=== PATIENT | female | born 1985 | race African-American/Black ===

== ENCOUNTER 2016-09-01 15:14 | Emergency (ER) | payer SELFPAY | END 2016-09-01 16:06 | disposition left against medical advice (07) | LOC: UCEAST 15:14 | DX: R05 Cough (principal); Z53.21 Procedure and treatment not carried out due to patient leaving prior to being seen by health care provider ==

== ENCOUNTER 2017-08-29 10:57 | Emergency (ER) | payer MEDICAID ==
[2017-08-29] MEDS ORDERED: Mouth Piece, Nicotine* 1 EACH CARTRIDGE INH PRN (12:50)
[2017-08-29] MEDS ORDERED: Nicotine Inhaler* 10 MG AMP INH ONE (12:50)
[2017-08-29] MEDS ORDERED: Nicotine Inhaler* 10 MG AMP ONE ×2 (12:52)
[2017-08-29] MEDS ORDERED: Mouth Piece, Nicotine* 1 EACH CARTRIDGE ONE (12:52)
--- NOTE | 2017-08-29 14:17 | RAD ---
Indication: Left hand injury. 4 views of left hand demonstrates no fracture. No other bone or joint abnormality is noted. IMPRESSION: No fracture of the left hand is noted.
[2017-08-29 14:50] VITALS: BP 125/71
--- NOTE | 2017-08-30 07:10 | ED ---
Upper Extremity Pain - HPI Summary HPI Summary: Patient is a 31-year-old IV drug user presenting to the ED with a chief complaint of left hand swelling after she punched a "wall" last night. She endorses swelling and exquisite tenderness to the area. She endorses pain over the dorsum of the hand. She's been using IV drugs, but states she is not injected into the hand. Denies any other pain or concerns. She has been denying fever, sweats, chills. Denies any other illness. She is able to extend at the fingertips, but with pain. She is able to flex and extend at the wrist. Denies any numbness or tingling to the area. - History of Current Complaint Chief Complaint: EDExtremityUpper Stated Complaint: LT HAND INJURY Time Seen by Provider: 08/29/17 11:07 Hx Obtained From: Patient Hx Last Menstrual Period: 12/02/15 Mechanism Of Injury: Blunt Trauma Onset/Duration: Started Hours Ago Timing: Constant Severity Initially: Moderate Severity Currently: Moderate Pain Location: Hand Character: Aching Aggravating Factor(s): Lifting, Flexion, Extension, Internal/External Rotation, Abduction Alleviating Factor(s): Rest, Ice Associated Signs & Symptoms: Positive: Swelling, Redness Related History: Dominant Hand Right - Risk Factors Non-Orthopedic Risk Factor: Negative DVT Risk Factors: Negative Septic Arthritis Risk Factor: Negative Compartment Syndrome Risk Factors: Pain - Allergies/Home Medications Allergies/Adverse Reactions: Allergies Allergy/AdvReac Type Severity Reaction Status Date / Time Iodinated Contrast- Oral and Allergy Rash Verified 08/29/17 11:03 IV Dye iodine Allergy Rash Verified 08/29/17 11:03 mushroom Allergy Anaphylatic Verified 08/29/17 11:03 Shock shellfish derived Allergy Difficulty Verified 08/29/17 11:03 Breathing PMH/Surg Hx/FS Hx/Imm Hx Previously Healthy: Yes - Lungs Respiratory History: Reports: Hx Asthma - exercise induced History: Reports: Hx Kidney Infection - Surgical History Surgery Procedure, Year, and Place: c-sectionx1 - Immunization History Hx Pertussis Vaccination: No Immunizations Up to Date: Unable to Obtain/Confirm Infectious Disease History: No Infectious Disease History: Denies: Traveled Outside the [place] in Last 30 Days - Family History Known Family History: Positive: Unknown, Other - pt denies family hx of cardiopulmonary disease or cancer - Social History Occupation: Unemployed Lives: Alone Alcohol Use: Rare Hx Substance Use: Yes - heroin Substance Use Type: Reports: None Smoking Status (MU): Current Every Day Smoker Type: Cigarettes Amount Used/How Often: 1 PPD Review of Systems Negative: Fever, Chills, Fatigue Negative: Photophobia, Blurred Vision Negative: Dental Pain Negative: Palpitations, Chest Pain Negative: Shortness Of Breath Positive: Arthralgia Positive: Other - swelling, erythema and warmth to the dorsum of the L hand Negative: Headache, Weakness, Paresthesia Psychological: Normal All Other Systems Reviewed And Are Negative: Yes Physical Exam Triage Information Reviewed: Yes Vital Signs On Initial Exam: Initial Vitals Temp Pulse Resp BP Pulse Ox 97.3 F 67 14 112/75 100 08/29/17 11:03 08/29/17 11:03 08/29/17 11:03 08/29/17 11:03 08/29/17 11:03 Vital Signs Reviewed: Yes Appearance: Positive: Well-Appearing, Well-Nourished Skin: Positive: Other - erythma and warmth to the dorsum of the hand Head/Face: Positive: Normal Head/Face Inspection Eyes: Positive: EOMI, LUANNE, Conjunctiva Clear Neck: Positive: Supple, No Lymphadenopathy Respiratory/Lung Sounds: Positive: Clear to Auscultation, Breath Sounds Present Cardiovascular: Positive: RRR, Pulses are Symmetrical in both Upper and Lower Extremities Musculoskeletal: Positive: Normal, Strength/ROM Intact Neurological: Positive: Alert, Oriented to Person Place, Time, Speech Normal Psychiatric: Positive: Affect/Mood Appropriate AVPU Assessment: Alert Diagnostics - Vital Signs Vital Signs Temp Pulse Resp BP Pulse Ox 08/29/17 14:49 98.5 F 91 16 125/71 99 08/29/17 11:03 97.3 F 67 14 112/75 100 - Laboratory Lab Statement: Any lab studies that have been ordered have been reviewed, and results considered in the medical decision making process. Course/Dx - Course Course Of Treatment: During the course of treatment, the patient's evaluated for left hand swelling. On evaluation the hand appears to be red, swollen, warm with slight amount of streaking up the forearm. She denies fevers and her vital signs are otherwise stable. Patient states she hit a wall last night and must have fractured her hand, however x-ray is negative. She then states she did not hit a wall but she had a person. Denies hitting them in the mouth. I discussed that this appears to be an infection of the hand, most likely due to IV drug use. I've considered Eikenella corrodens as an infection from oropharyngeal aidan, however she denies this. For that, I have placed her on Bactrim at this time. She attends drug treatment tomorrow. I have asked her to return for any worsening streaking up the hand, warmth, tenderness, swelling or she develops any fevers. She understands she will take Bactrim twice daily 5 days without missing a dose. - Diagnoses Differential Diagnosis/HQI/PQRI: Positive: Other - hand infection Provider Diagnoses: IV site infection, Hand trauma Discharge - Sign-Out/Discharge Documenting (check all that apply): Discharge - Discharge Plan Condition: Stable Disposition: HOME Prescriptions: Sulfamethox/Trimethoprim DS* [Bactrim DS 800/160 TAB*] 1 tab PO BID #10 tab Sulfamethox/Trimethoprim DS* [Bactrim DS 800/160 TAB*] 1 tab PO BID #14 tab MDD 2 Patient Education Materials: Cellulitis (ED), Crush Injury (ED) Referrals: Dawson Damon MD [Medical Doctor] - No Primary Care Phys,NOPCP [Primary Care Provider] - Additional Instructions: Please follow-up with Dr. Cannon for any worsening pain If you develop worsening redness, warmth, red streaking up the arm or develop a fever, E need to return to the ED immediately Bactrim twice daily 5 days Keep the Preston bandage on 2 days - Billing Disposition and Condition Condition: STABLE Disposition: HOME
== END 2017-08-29 14:50 | disposition home or self-care (01) ==
LOC: ED 10:57
DX: S69.91XA Unspecified injury of right wrist, hand and finger(s), initial encounter (principal); Y92.9 Unspecified place or not applicable; T80.29XA Infection following other infusion, transfusion and therapeutic injection, initial encounter; J45.990 Exercise induced bronchospasm; F17.210 Nicotine dependence, cigarettes, uncomplicated; Y04.2XXA Assault by strike against or bumped into by another person, initial encounter
CPT/HCPCS: 99282; A9270-GY

== ENCOUNTER 2018-04-13 18:06 | Emergency (ER) | payer SELFPAY ==
[2018-04-13 18:36] VITALS: BP 121/75
--- NOTE | 2018-04-14 08:36 | UC ---
- Progress Note Progress Note: There were no x-rays ordered on April 13, 2018 therefore there is no discrepancy. Course/Dx - Diagnoses Provider Diagnoses: Patient left without being seen Discharge - Sign-Out/Discharge Documenting (check all that apply): Patient Departure All imaging exams completed and their final reports reviewed: No Studies - Discharge Plan Condition: Stable Disposition: LEFT WITHOUT BEING SEEN Referrals: No Primary Care Phys,NOPCP [Primary Care Provider] - - Billing Disposition and Condition Condition: STABLE Disposition: Left Without Being Seen
== END 2018-04-13 19:05 | disposition left against medical advice (07) ==
LOC: UCEAST 18:06
DX: S49.90XA Unspecified injury of shoulder and upper arm, unspecified arm, initial encounter (principal); X58.XXXA Exposure to other specified factors, initial encounter; Y92.9 Unspecified place or not applicable; Z53.21 Procedure and treatment not carried out due to patient leaving prior to being seen by health care provider

== ENCOUNTER 2018-10-09 22:20 | Emergency (ER) | payer OTHER ==
[2018-10-09] MEDS ORDERED: Lidocaine 2% EPI 1:200000 MPF* 10 ML VIAL INJ ONE (22:38)
[2018-10-09] MEDS ORDERED: Cephalexin CAP* 500 MG PO ONE ×2 (22:39→22:55)
--- NOTE | 2018-10-09 22:41 | ED ---
Skin Complaint - HPI Summary HPI Summary: This patient is a 32 year old F presenting to ED with a chief complaint of skin abscesses since a week ago. The patient has an abscess on the right arm since a week ago, on the left arm since two days ago, and on the right foot since today. The patient reports popping the abscesses on her right arm today. Patient states she is having an opiate withdrawal and is seven months . The patient rates the pain 10/10 in severity. Symptoms aggravated by nothing. Symptoms alleviated by nothing. Patient denies fever. PMHx of ulcer, kidney infection. PSHx of . No FHx of cardiopulmonary disease or cancer. Patient drinks alcohol, heroin, and tobacco. - History of Current Complaint Chief Complaint: EDRashSkinAbscess Time Seen by Provider: 10/09/18 22:31 Stated Complaint: OPEN SORES, STAPH INFECTION, WITHDRAWAL PER PT Hx Obtained From: Patient Hx Last Menstrual Period: [id number] Onset/Duration: Started Weeks Ago - 1 week, Still Present, Worse Since - Now left forearm and right foot Timing: Constant Current Severity: Severe Pain Intensity: 10 Pain Scale Used: 0-10 Numeric Skin Location: Foot - Right, Other: - Bilateral forearms Aggravating Symptom(s): Nothing Alleviating Symptom(s): Nothing Associated Signs & Symptoms: Negative - Fever, Drainage - Allergy/Home Medications Allergies/Adverse Reactions: Allergies Allergy/AdvReac Type Severity Reaction Status Date / Time Iodinated Contrast- Oral and Allergy Rash Verified 10/09/18 22:24 IV Dye iodine Allergy Rash Verified 10/09/18 22:24 mushroom Allergy Anaphylatic Verified 10/09/18 22:24 Shock shellfish derived Allergy Difficulty Verified 10/09/18 22:24 Breathing PMH/Surg Hx/FS Hx/Imm Hx Respiratory History: Reports: Hx Asthma - exercise induced GI History: Reports: Hx Ulcer History: Reports: Hx Kidney Infection - Surgical History Surgery Procedure, Year, and Place: c-sectionx1 Infectious Disease History: Yes Infectious Disease History: Denies: Traveled Outside the [place] in Last 30 Days - Family History Known Family History: Positive: Other - pt denies family hx of cardiopulmonary disease or cancer - Social History Alcohol Use: Weekly Hx Substance Use: Yes - heroin Substance Use Type: Reports: Heroin Hx Tobacco Use: Yes Smoking Status (MU): Current Some Day Smoker Type: Cigarettes Amount Used/How Often: 1 PPD Review of Systems Negative: Fever Skin: Other - Abscesses on bilateral arms and right foot All Other Systems Reviewed And Are Negative: Yes Physical Exam - Summary Physical Exam Summary: Appearance: Well-appearing, Well-nourished, lying in bed comfortable Skin: Multiple areas of localized infection of right forearm, none of which seem to be abscessed. There is a small area of drainage on left forearm with drainage and raised fluctuant area that appears abscessed (also visualized on US ). Right foot erythematous and tender, consistent cellulitis. Eyes: sclera anicteric, no conjunctival pallor ENT: mucous membranes moist Neck: deferred Respiratory: No signs of respiratory distress Cardiovascular: Appears well perfused, pulses are nml Abdomen: deferred Musculoskeletal: Moving all 4 extremities without obvious discomfort Neurological: Awake and alert, mentation is normal, speech is fluent and appropriate Psychiatric: affect is normal, does not appear anxious or depressed Triage Information Reviewed: Yes Vital Signs On Initial Exam: Initial Vitals Temp Pulse Resp BP Pulse Ox 98.8 F 89 18 86/70 97 10/09/18 22:22 10/09/18 22:22 10/09/18 22:22 10/09/18 22:22 10/09/18 22:22 Vital Signs Reviewed: Yes Procedures - Incision and Drainage Left Arm Site: Left forearm Anesthesia: Lidocaine Instrument(s): Scalpel - Small amount of pus was drained and flocculations were broken up. - Ultrasound No standard instances Ultrasound: normal - Bedside US revealed fluctuant area on left forearm Diagnostics - Vital Signs Vital Signs Temp Pulse Resp BP Pulse Ox 10/09/18 22:22 98.8 F 89 18 86/70 97 - Laboratory Lab Statement: Any lab studies that have been ordered have been reviewed, and results considered in the medical decision making process. Course/Dx - Course Course Of Treatment: This patient is a 32 year old F presenting to ED with a chief complaint of skin abscesses since a week ago. In the ED course, patient received Keflex. I&D was performed on the abscess of the left forearm. Small amount of pus was drained and flocculations were broken up. Patient will be discharged with dx of cellulitis of right foot, right and left forearm, and abscess of left forearm. Patient understands and agrees with this plan. - Diagnoses Provider Diagnoses: Cellulitis of right foot, Cellulitis of left forearm, Cellulitis of right forearm, Abscess of left forearm Discharge - Sign-Out/Discharge Documenting (check all that apply): Patient Departure - Discharge Patient Received Moderate/Deep Sedation with Procedure: No - Discharge Plan Condition: Good Disposition: HOME Prescriptions: Cephalexin CAP* [Keflex CAP*] 500 mg PO QID #40 cap Patient Education Materials: Cellulitis (ED), Abscess Follow-up (ED), Abscess Incision and Drainage (DC) Referrals: No Primary Care Phys,NOPCP [Primary Care Provider] - Additional Instructions: Check in with nurse at the care home first thing in the morning. Change dressings as needed. If you start to withdraw and they are unable to treat you at the care home you can return here for treatment. - Billing Disposition and Condition Condition: GOOD Disposition: Home - Attestation Statements Document Initiated by Nguyen: Yes Documenting Scribe: Edison Morales Provider For Whom Nguyen is Documenting (Include Credential): Alexander Beltran MD Scribe Attestation: IEdison, scribed for Alexander Beltran MD on 10/10/18 at 0315. Scribe Documentation Reviewed: Yes Provider Attestation: The documentation as recorded by the Edison roblero accurately reflects the service I personally performed and the decisions made by me, Alexander Beltran MD Status of Scribjose Document: Viewed
[2018-10-09] MEDS ORDERED: Lidocaine 2% W/EPI 1:100,000* 20 ML MDV INJ ONE (23:00)
[2018-10-10 00:59] VITALS: BP 99/55
== END 2018-10-10 00:56 | disposition home or self-care (01) ==
LOC: ED 22:20
DX: L02.414 Cutaneous abscess of left upper limb (principal); L02.413 Cutaneous abscess of right upper limb; L03.115 Cellulitis of right lower limb; L03.114 Cellulitis of left upper limb; Z72.0 Tobacco use
CPT/HCPCS: 10060; 96374; 99283; A9270-GY

== ENCOUNTER 2018-11-22 11:00 | Inpatient (IN) | payer OTHER ==
[~2018-11-22 11:00] MED LIST: Buffered Lidocaine 1% SYRIN* 1 ML/SYRINGE INTRADERM ONE; Lactated Ringers 1000 ML Bag* 1,000 ML IV SCH
--- OUTSIDE RECORDS SUMMARY | 2018-11-23 13:21 | XMS REPORT | Continuity of Care Document ---
:1985 External Reference #:[id number] Author Name Jacquelyn Lyles PA-C Address [address] [place] [address] [place] [address] Care Team Providers Name Role Phone Amelia Borden LM Care Team Information Inorganic Chemist Unavailable Payers Date Identification Numbers Payment Provider Subscriber PayID: [id number] [facility] Margarita Obregon [address] [place] [address] Attn: [place] [address] Problems Active Problems Provider Date High enzyme level in serum Jacquelyn Lyles PA-C Onset: 11/03/2018 Elevated levels of transaminase & lactic Jacquelyn Lyles PA-C Onset: acid dehydrogenase Social History Type Date Description Comments Sex Unknown ETOH Use Denies alcohol use 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 Recreational Drug Use history of Ivda (heroin) Tobacco Use Start: Unknown End: Patient is a former Unknown smoker Smoking Status Reviewed: 11/03/18 Patient is a former smoker Allergies, Adverse Reactions, Alerts Active Allergies Reaction Severity Comments Date Iodine 11/03/2018 Fish 11/03/2018 Medications Active Medications SIG Qnty Indications Ordering Provider Date Unknown Sublocade Unknown 300mg/1.5ML Soln Prefill Syringe Vital Signs Date Vital Result Comment 11/03/2018 1:56pm Height 61 inches 5'1" Weight 126.00 lb BP Systolic 112 mmHg BP Diastolic 67 mmHg Heart Rate 73 /min BMI (Body Mass Index) 23.8 kg/m2 Results Test Date Facility Test Result H/L Range Note Laboratory test 11/04/2018 [facility] Bile 26 mcmol/L Abnormal <=10 1, 2 finding Acids,Total CBC W/Auto 10/26/2018 [facility] White Blood <pending> Differential(!) Count Ser Auto CNT RBC Red Blood Count <pending> Hemoglobin Blood <pending> Hematocrit <pending> MCV (Corpuscular Volume) <pending> MCH (Corpuscular Hemoglobin) <pending> MCHC (Corpuscular Hemog Conc) <pending> RDW <pending> Platelet Count Blood Auto CNT <pending> MPV <pending> Lymph% <pending> [place]% <pending> Neutrophil % <pending> Absolute Lymphocytes <pending> Absolute Monocytes <pending> Absolute Neutrophils <pending> 1 [id number] 2 Test Performed by: [address] [id number]
--- OUTSIDE RECORDS SUMMARY | 2018-11-23 13:21 | XMS REPORT | Continuity of Care Document ---
:1985 External Reference #:[id number] Author Name Jacquelyn Lyles PA-C Address [address] [place] [address] [place] [address] Care Team Providers Name Role Phone Amelia Borden LM Care Team Information Pinion And Wheel Truer Unavailable Payers Date Identification Numbers Payment Provider Subscriber PayID: [id number] [facility] Margarita Obregon [address] [place] [address] Attn: [place] [address] Problems Active Problems Provider Date High enzyme [...] Auto CNT <pending> MPV <pending> Lymph% <pending> [place]% <pending> Neutrophil % <pending> Absolute Lymphocytes <pending> Absolute Monocytes <pending> Absolute Neutrophils <pending> 1 [id number] 2 Test Performed by: [address] [address]
--- OUTSIDE RECORDS SUMMARY | 2018-11-23 13:21 | XMS REPORT | Continuity of Care Document ---
:1985 External Reference #:[id number] Author Name Jacquelyn Lyles PA-C Address [address] [place] [address] [place] [address] Care Team Providers Name Role Phone Amelia Borden LM Care Team Information District Manager In Training Unavailable Payers Date Identification Numbers Payment Provider Subscriber PayID: [id number] [facility] Margarita Obregon [address] [place] [address] Attn: [place] [address] Problems Active Problems Provider Date High enzyme [...] Auto CNT <pending> MPV <pending> Lymph% <pending> [place]% <pending> Neutrophil % <pending> Absolute Lymphocytes <pending> Absolute Monocytes <pending> Absolute Neutrophils <pending> 1 [id number] 2 Test Performed by: [address] [address]
--- NOTE | 2018-11-23 13:28 | HP ---
General Information - Reason for Visit NEEDS REPEAT C/S. - General Information Maternal Age: 32 Grav: 5 Para: 1 SAB: 0 IEA: 3 Estimated Due Date: 12/13/18 Determined By: Early Ultrasound Maternal Blood Type and Rh: O Negative - Results this Serology/RPR Result: Non-Reactive Rubella Result: Immune HBsAg Result: Negative HIV Result: Negative Review of Systems CV Complaint: No Respiratory: Shortness of Breath: No Gastrointestinal: No Nausea/Vomiting Genitourinary: No Dysuria Musculoskeletal: No Complaint Neurological: No Headache, No Visual Changes Movement: Normal Exam Allergies/Adverse Reactions: Allergies Iodinated Contrast- Oral and IV Dye Allergy (Verified 10/09/18 22:24) Rash iodine Allergy (Verified 10/09/18 22:24) Rash mushroom Allergy (Verified 10/09/18 22:24) Anaphylatic Shock shellfish derived Allergy (Verified 10/09/18 22:24) Difficulty Breathing - Measurements Pre- Weight: 110 lb - Exam Breast: - - NL BREAST EXAM CVA: No CVA Tenderness Extremities: No Edema Heart: Normal Rhythm/Heart Sounds HEENT: No Significant Findings Lungs: Clear Bilaterally Rectal: Rectal Exam Deferred Reflexes: DTR 2+ Thyroid: No Thyromegaly - Abdominal Exam Abdomen Exam: Non-Tender - Ultrasound/Biophysical Profile Ultrasound Status: Not Done Targeted Exam Findings Cervical Exam: Closed Effacement: <50% Station: Ballotable, -3 Presenting Part: Vertex Membrane Status: Intact Bleeding/Discharge: None EFM Findings - External Monitor Findings External Monitor Findings: Accelerations Present, Baseline Stable, Variability Minimal Contractions: None Assessment/Plan - Assessment HX OF DRUG USE ON MEDS. ON MEDS FOR CHOLESTASIS. - Obstetrical Risk Factors Obstetrical Risk Factors: GBS Unknown, Substance Abuse Risk Factors Comment: DRUG USE CHOLESTASIS PREVIOUS C/S. - Plan Plan: C/S Delivery - Date/Time of Admission Date of Admission: 11/23/18 Time of Admission: 02:00 - C/S IN AM BECAUSE PT ATE TODAY PRIOR TO ARRIVAL TO HOSPITAL.
[2018-11-23] MEDS ORDERED: Lactated Ringers 1000 ML Bag* 1,000 ML IV ONE (13:59)
[2018-11-23] MEDS ORDERED: ceFOXitin 2 GM IVPREMIX* 2 GM/50 ML BAG IVPB ONE (13:59)
[2018-11-23] MEDS ORDERED: Buffered Lidocaine 1% SYRIN* 1 ML/SYRINGE INTRADERM ONE (13:59)
[2018-11-23] MEDS ORDERED: Sodium Citrate/Citric Acid* 15 ML UDC PO ONE (13:59)
[2018-11-23] MEDS ORDERED: Lactated Ringers 1000 ML Bag* 1,000 ML IV SCH (14:00)
[2018-11-23 15:01] LABS: Urine Appearance Cloudy; Urine Bacteria 1+ (Absent); Urine Bilirubin Negative (Negative); Urine Blood Negative (Negative); Urine Color Amber; Urine Glucose Negative (Negative); Urine Ketones Negative (Negative); Urine Nitrite Positive (Negative); Urine Protein Negative (Negative); Urine Red Blood Cell Absent (Absent); Urine Specific Gravity 1.023 (1.010-1.030); Urine Squamous Epithelial Cell Present (Absent); Urine Urobilinogen Positive (Negative); Urine White Blood Cell 1+(6-10/hpf) (Absent)
[2018-11-23 15:23] LABS: Urine Benzodiazepine Screen None Detected (None Detect); Urine Opiates Screen Presumptive Positive (None Detect)
[2018-11-23] MEDS: Nicotine PATCH 7 MG/24 HR* PATCH TRANSDERM SCH (15:47)
[2018-11-23 15:53] LABS: ABS Lymphocytes 1.8 10^3/ul (1.0-4.8); ABS Neutrophils 7.8 10^3/ul (1.5-7.7); Eosinophil % 0.1 %; Hematocrit 36 % (35-47); Hemoglobin 12.2 g/dL (12.0-16.0); Lymphocyte % 16.8 %; Mean Corpuscular HGB Conc 34 g/dL (31-36); Mean Corpuscular Hemoglobin 32 pg (27-31); Mean Corpuscular Volume 94 fL (80-97); Mean Platelet Volume 8.3 fL (7.4-10.4); Platelet Count 290 10^3/uL (150-450); Red Blood Count 3.86 10^6 /uL (3.70-4.87); Red Cell Distribution Width 15 % (10-15); White Blood Count 10.7 10^3/uL (3.5-10.8)
[2018-11-23 16:09] LABS: Calcium 9.2 mg/dL (8.6-10.3); Potassium 3.9 mmol/L (3.5-5.0)
[2018-11-23 16:15] LABS: BUN/Creatinine Ratio 17.1 (8-20); EGFR African American 118.1 (>60); EGFR Non-African American 97.6 (>60)
[2018-11-24] MEDS ORDERED: Nicotine Patch Removal NOTE FOLLOW UP SCH (06:00)
[2018-11-24] MEDS ORDERED: ceFOXitin 2 GM IVPREMIX* 2 GM/50 ML BAG IVPB ONE (07:00)
[2018-11-24] MEDS ORDERED: Sodium Citrate/Citric Acid* 15 ML UDC PO ONE (07:00)
[2018-11-24] MEDS ORDERED: Morphine PF AMP (0.5MG/ML)* 5 MG/10 ML AMP ONE (08:02)
[2018-11-24] MEDS ORDERED: Ondansetron INJ* 2 MG/ML VIAL ONE (08:04)
[2018-11-24] MEDS ORDERED: Ketorolac INJ* 30 MG/ML 1 ML VIAL ONE (08:04)
[2018-11-24] MEDS ORDERED: OXYTOCIN* 10 UNITS/ML 1 ML VIAL ONE (08:04)
[2018-11-24 08:44] LABS: Urine Benzodiazepine Screen None Detected (None Detect); Urine Opiates Screen Presumptive Positive (None Detect)
[2018-11-24] MEDS ORDERED: diPHENhydraMINE IV* 50 MG/ML 1 ml VIAL (BENADRYL) IV PRN (08:52)
[2018-11-24] MEDS ORDERED: Naloxone* 0.4 MG/ML 1 ML VIAL IV PRN (08:52)
[2018-11-24] MEDS ORDERED: Ondansetron INJ* 2 MG/ML VIAL IV PRN (08:52)
[2018-11-24] MEDS ORDERED: oxyCODONE/Acetamin 5/325 MG* TAB PO PRN (08:52)
[2018-11-24] MEDS ORDERED: Acetaminophen IV 1GM/100ML * 1,000 MG/100 ML VIAL IVPB ONE (09:18)
[2018-11-24] MEDS ORDERED: HYDROmorphone INJ1* 1 MG/ML SYRINGE IV PRN (09:18)
[2018-11-24] MEDS ORDERED: DiMENhydriNATE IV* 50 MG/ML VIAL IV PUSH PRN (09:18)
[2018-11-24] MEDS ORDERED: Propofol* 10 MG/ML 20 ML BTL ONE (09:36)
[2018-11-24] MEDS ORDERED: Misoprostol TAB* 200 MCG PR ONE (09:52)
[2018-11-24] MEDS ORDERED: Glycerin ADULT SUPP PR PRN (09:52)
[2018-11-24] MEDS ORDERED: Zolpidem TAB* 5 MG PO PRN (09:52)
[2018-11-24] MEDS ORDERED: Methylergonovine INJ* 0.2 MG/ML 1ML AMP IM ONE (09:52)
[2018-11-24] MEDS ORDERED: Dibucaine 1% 28.35 GM TUBE PR PRN (09:52)
[2018-11-24] MEDS ORDERED: Witch Hazel PAD* JAR TOPICAL PRN (09:52)
[2018-11-24] MEDS ORDERED: Carboprost Tromethamine* 250 MCG INJ IM ONE (09:52)
[2018-11-24] MEDS ORDERED: OXYTOCIN* 10 UNITS/ML 1 ML VIAL IM ONE (09:52)
--- NOTE | 2018-11-24 09:52 | OP ---
Operative Report - Detailed - Operation Details Date of Operation: 11/24/18 Date of : 11/24/18 Surgeon(s): BESSIE Fish Roe Processor(s): ASHWIN Anesthesiologist(s): DELMY Anesthesia: SPINAL Pre-Op Diagnosis: 37 WK IIUP. GEST DM. DRUG USE. MRSA. CHOLESTASIS Post-Op Diagnosis: SAME Planned Operative Procedure(s): REPEAT L/T Estimated Blood Loss: 400 CCS IV Fluids: IV Specimen(s)/Culture(s) Description: PLACENTA AND CORD Drains: ROMERO Counts: CORRECT Wound Classification: CLEAN Complications: NONE Findings: LIVE BORN FEMALE, 5' 6", 9,10.OMENTAL-ANTERIOR ADHESIONS.NL PLACENTA.
[2018-11-24] MEDS ORDERED: Lactated Ringers 1000 ML Bag* 1,000 ML IV SCH (10:00)
[2018-11-24] MEDS ORDERED: Acetaminophen IV 1GM/100ML * 100 ML ONE (10:12)
[2018-11-24] MEDS: Nicotine PATCH 7 MG/24 HR* PATCH TRANSDERM SCH (11:03)
[2018-11-24] MEDS: Simethicone TAB* 80 MG TAB.CHEW PO SCH ×3 (11:29→21:30)
--- NOTE | 2018-11-24 11:33 | OP ---
OPERATIVE REPORT: DATE OF OPERATION: 11/24/18 DATE OF : 89 ATTENDING SURGEON: Isabel Lopes MD MAID CLEANING COOKING: Dr. Choudhary. ANESTHESIOLOGIST: Dr. Craven. ANESTHESIA: Spinal. PRE-OP DIAGNOSES: 37 week intrauterine , cholestasis, drug use, methicillin-resistant Staph ylococcus aureus, gestational diabetes, previous section. POST-OP DIAGNOSES: 37 week intrauterine , cholestasis, drug use, methicillin-resistant Stap hylococcus aureus, gestational diabetes, previous section. OPERATIVE PROCEDURE: Repeat low-transverse section, lysis of adhesions. ESTIMATED BLOOD LOSS: 400 cc. DRAINS: Newman. SPECIMENS: Placenta and cord. FINDINGS: Live born female . Apgars 9 and 10. Weight 5 pounds 6 ounces. INDICATIONS FOR SURGERY: The patient had cholestasis, she had MRSA, she has drug use, and really had not enough visits and she is still using drugs and she needed to have a repeat sec tion. DESCRIPTION OF PROCEDURE: The patient was taken to the operating room, placed in a supine position. The patient was given a spinal anesthetic. Once the spinal anesthetic was adequate for the procedur e, the incision had been marked. We had a time-out and we concurred, and subsequently, we made a Pfa nnenstiel incision with the scalpel, entered the abdominal cavity anatomically. Vesicouterine perito neum was opened with Metzenbaum. The bladder was bluntly dissected off lower uterine segment. A low transverse incision made in lower uterine segment with a scalpel. The fetus in vertex presentation w as then delivered without incident. Oropharynx was suctioned. We allowed the cord to pulsate for ab out a minute before we clamped it, and subsequently the cord was clamped and we got the cord blood. Baby was passed over the table to the trimming operator in a stable condition. Cord blood was obtained. The placenta was then delivered manually. Uterus was then delivered extra-abdominally. Uterus was cleaned of debris, membranes, and tissue. Uterine incision was repaired in 2 layers, first layer was in the deep myometrium using #0 Vicryl running nonlocking. Second layer was in superficial myometri um using running nonlocking #0 Vicryl continuous. Uterine incision was hemostatic. Vesicouterine per itoneum was repaired with a running 2-0 Vicryl. Uterus was dropped back into the abdominal cavity an d we cleaned the gutters with suction and irrigation. was suctioned also. Subsequently, all instruments were removed from the abdominal cavity. Instrument count, needle, lap, and sponge count was correct. The patient did have some omental anterior abdominal adhesions which were clamped with the Jessie and cut with a Bovie and ligated with 3-0 Vicryl. We used the FISH device to hold the omen omar back. We closed the anterior abdominal peritoneum with running 2-0 Vicryl. Subsequently, the FI SH was removed before we completely closed the anterior abdominal peritoneum. Fascia was closed with running locking #0 Vicryl. We did not close the subcutaneous layer as the patient was very thin. T he skin was closed with skin cayetano and draped with the usual dressing for this type of incision. T he patient tolerated the procedure well. She was then returned to the recovery room in stable condit ion. [id number]/[facility] #: [id number]
[2018-11-24] MEDS: Nicotine Patch Removal NOTE FOLLOW UP SCH ×2 (12:28→21:31)
[2018-11-24] MEDS: Ketorolac INJ* 30 MG/ML 1 ML VIAL IV SCH ×2 (15:26→21:30)
[2018-11-24] MEDS: Docusate CAP* 100 MG PO SCH ×2 (15:26→21:30)
[2018-11-24] MEDS: Ursodiol CAP* 300 MG PO SCH (15:56)
[2018-11-24] MEDS ORDERED: Acetaminophen TAB* 325 MG PO ONE (19:06)
[2018-11-24] MEDS ORDERED: oxyCODONE TAB* 5 MG TAB PO PRN (19:07)
[2018-11-24] MEDS ORDERED: Nicotine Patch Removal NOTE PATCH OFF SCH (21:00)
[2018-11-25] MEDS ORDERED: oxyCODONE/Acetamin 5/325 MG* TAB PO PRN (01:00)
[2018-11-25] MEDS: Ketorolac INJ* 30 MG/ML 1 ML VIAL IV SCH ×2 (03:30→09:48)
[2018-11-25] MEDS ORDERED: Buprenorphine TAB* 8 MG PO SCH (08:00)
[2018-11-25] MEDS: Docusate CAP* 100 MG PO SCH ×3 (08:52→21:14)
[2018-11-25] MEDS ORDERED: Varicella Virus Vaccine Live* 0.5 ML VIAL SUBCUT ONE (09:00)
[2018-11-25] MEDS ORDERED: Tetan/Diph/Pertus SYR(Tdap)* 0.5 ML SYR(BOOSTRIX) use SYR IM ONE (09:00)
[2018-11-25] MEDS ORDERED: Measles, Mumps,Rubella VACC* 0.5 ML/VIAL SUBCUT ONE (09:00)
[2018-11-25] MEDS ORDERED: Ferrous Gluconate TAB* 324 MG TAB PO SCH (09:00)
[2018-11-25] MEDS: Simethicone TAB* 80 MG TAB.CHEW PO SCH ×4 (09:48→21:13)
[2018-11-25] MEDS: Nicotine PATCH 7 MG/24 HR* PATCH TRANSDERM SCH (09:51)
[2018-11-25] MEDS: Ursodiol CAP* 300 MG PO SCH (09:51)
[2018-11-25 11:45] LABS: ABS Lymphocytes 2.1 10^3/ul (1.0-4.8); ABS Monocytes 0.9 10^3/ul (0-0.8); ABS Neutrophils 9.8 10^3/ul (1.5-7.7); Eosinophil % 0.3 %; Hematocrit 33 % (35-47); Lymphocyte % 16.1 %; Mean Corpuscular HGB Conc 33 g/dL (31-36); Mean Corpuscular Hemoglobin 31 pg (27-31); Mean Corpuscular Volume 95 fL (80-97); Mean Platelet Volume 8.4 fL (7.4-10.4); Platelet Count 286 10^3/uL (150-450); Red Blood Count 3.51 10^6 /uL (3.70-4.87); Red Cell Distribution Width 15 % (10-15); White Blood Count 12.9 10^3/uL (3.5-10.8)
[2018-11-25] MEDS: Acetaminophen TAB* 325 MG PO PRN ×3 (12:44→21:13)
[2018-11-25] MEDS: Ibuprofen TAB* 600 MG PO PRN ×2 (16:25→22:42)
--- NOTE | 2018-11-25 16:48 | PN ---
Progress Note - Progress Note Date of Service: 11/25/18 Note: Addiction Medicine Patient seen and examined. Will dictate full consult Plan is to stop other opiates, and give subutex BID. Will check back in Wednesday, as she will be outpatient then, may need 2-3 days subutex sent to [facility]. Will also need 2 weeks of subutex to go with her to inpatient rehab at [place]. Will see her wednesday. She is also talking to REACH and STAP.
--- NOTE | 2018-11-25 19:32 | CONS ---
CC: Dr. Choudhary * ADDICTION MEDICINE CONSULTATION REPORT: DATE OF CONSULT: 11/25/18 REQUESTING PHYSICIAN: Dr. Choudhary. 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 HISTORY OF PRESENT ILLNESS: Ms. Obregon is a 33-year-old woman, who has a history of opiate use disorder. The recent history was gathered from the chart and from the patient as well as her primary nurse. The patient was previously incarcerated in October of this year for reasons that I did not determine. She was given a dose of Sublocade IM and this was supposed to last 2 weeks around the last day of October. She has been out of the skilled nursing and in her 9th month of during November and states that she was looking for a repeat dose of Sublocade around 11/20/18, but was unable to find addiction medicine treatment. Her last use of heroin was intranasal 2 days prior to the admission and she also used cocaine. The patient was admitted on 11/23/18 in early labor and had an elective yesterday without complications. She had 1 previous live delivery by . She has been 5 times. The patient states that her pain control is not adequate on her current doses of Tylenol and ibuprofen. This morning, based on her history of opiate use and recent Sublocade use, Dr. Choudhary gave her 1 dose of 8 mg of buprenorphine. The patient states that when she was in skilled nursing prior to being on Sublocade, she was on buprenorphine twice a day. PAST MEDICAL HISTORY: During the , she has had elevated liver enzymes , although she denies any history of hepatitis C. Alkaline phosphatase was elevated on 11/01/18. She did see Gastroenterology about cholestatic issues of . She also understood that Sublocade can have liver enzyme abnormalities. Past medical history also includes asthma and bipolar disorder. CURRENT MEDICATIONS: 1. Tramadol as needed. 2. Buprenorphine 8 mg p.o. a.m. 3. Dibucaine per rectum q.i.d. p.r.n. discomfort (pruritus). 4. Colace 100 mg p.o. t.i.d. 5. Glycerin suppository 1 p.r. daily p.r.n. constipation. 6. Nicotine patch 7 mg per 24 hours topically in the morning. 7. Simethicone 80 mg at h.s., standing. 8. Ursodiol 300 mg p.o. daily. 9. Witch toi as needed. 10. Zolpidem 5 mg p.o. q.h.s. p.r.n. insomnia. 11. Oxycodone 10 mg q.4 hours p.r.n. for pain. ALLERGIES: IODINATED CONTRAST, mushrooms, shellfish. FAMILY HISTORY: Noncontributory. SOCIAL HISTORY: She smokes 5 cigarettes per day. Alcohol, none. Drug use, as above. She has a sister, who is supportive and is visiting. She has 2 wildlife officer , who are going to meet with her in [employer] on Wednesday coming up. Her boyfriend has been coming and going during the hospital stay. REVIEW OF SYSTEMS: The patient states pruritus is manageable. The patient has suprapubic pain that is moderate intensity. Remainder of her 14-point review of systems is negative other than that mentioned in the HPI. PHYSICAL EXAM: Temperature is 36.8, pulse 72, respirations 16, blood pressure is 108/65, O2 sat is 99% on room air. General: She is a well-appearing young woman, in no acute distress. Head is normocephalic, atraumatic. Sclerae anicteric. Pupils are equal, round, and reactive to light and accommodation. Oropharynx is moist. No lesions. Neck: No JVD. No carotid bruits. No thyromegaly. Lungs: Clear to auscultation and percussion bilaterally. Heart: Regular rate and rhythm without murmurs, rubs, or gallops. Abdomen is distended , soft. No hepatosplenomegaly. There is tenderness in the lower half of the abdomen and there is gravid, enlarged uterus. Extremities: No peripheral edema. Skin: No rashes. Neurologic: Cranial nerves II through XII are intact. She is moving all 4 extremities with equal power. DIAGNOSTIC STUDIES/LAB DATA: White count 12.9, hemoglobin 11.0, hematocrit 33% , platelets are 286. Sodium 136, potassium 3.9, chloride 105, bicarb 23, BUN 12 , creatinine 0.7, glucose 87. Urinalysis positive for nitrites, positive urobilinogen, trace leuk esterase, positive white cells. Toxicology showed opiates and cocaine on 11/23/18 and 11/24/18 urinalysis. Urine culture shows E. coli greater than 100,000. MRSA nasal screen was positive. ASSESSMENT AND PLAN: Opiate use disorder in the peripartum period. The patient has been accepted to long-term rehabilitation facility for mothers and babies in [place], [place], on 11/29/18. The patient is going to be discharged on 11/27/18, but she can stay in the hospital with her baby as a courtesy and to allow bonding. I advise to increase the Subutex to 8 mg twice a day. I will check in on Wednesday by telephone and continue her as outpatient on buprenorphine 8 mg twice a day, which I can send to her pharmacy. The patient needs to have outpatient addiction treatment if she does not go into rehab. Her plan is to go to rehab and I will support this by communicating with the rehabilitation doctors and giving her 2 weeks further of buprenorphine if she is absolutely on the way to [place] on Wednesday. For tobacco abuse, I recommend continuing the nicotine patch 7 mg topically daily. I or the OB doctor can write this upon discharge. For her urinary tract infection, it looks like she received 1 dose of cephalosporin during her yesterday. I would recommend treating her for urinary tract infection with Bactrim, which should cover methicillin- resistant Staphylococcus aureus and other urinary aidan. For the cholestatic jaundice of , I recommend rechecking liver enzymes in 2 weeks to see if this has resolved or post use of Sublocade. Thank you very much for this interesting consult. [id number]/[facility] #: [id number] YARELIS
[2018-11-25] MEDS: Buprenorphine TAB* 8 MG PO SCH (21:15)
[2018-11-25] MEDS: Nicotine Patch Removal NOTE FOLLOW UP SCH (21:20)
[2018-11-26] MEDS: Acetaminophen TAB* 325 MG PO PRN ×5 (01:21→20:05)
[2018-11-26] MEDS: Ibuprofen TAB* 600 MG PO PRN ×3 (04:37→20:05)
[2018-11-26] MEDS: Buprenorphine TAB* 8 MG PO SCH ×2 (08:18→21:03)
[2018-11-26] MEDS: Simethicone TAB* 80 MG TAB.CHEW PO SCH ×4 (08:19→21:03)
[2018-11-26] MEDS: Docusate CAP* 100 MG PO SCH ×3 (08:19→21:03)
[2018-11-26] MEDS: Nicotine PATCH 7 MG/24 HR* PATCH TRANSDERM SCH (08:19)
[2018-11-26] MEDS: Ursodiol CAP* 300 MG PO SCH (08:19)
[2018-11-26 21:39] LABS: Urine Benzodiazepine Screen None Detected (None Detect); Urine Opiates Screen Presumptive Positive (None Detect)
[2018-11-26] MEDS: Nicotine Patch Removal NOTE FOLLOW UP SCH (23:05)
[2018-11-27] MEDS: Acetaminophen TAB* 325 MG PO PRN ×4 (00:04→13:19)
[2018-11-27] MEDS: Ibuprofen TAB* 600 MG PO PRN ×2 (02:07→08:46)
[2018-11-27] MEDS: Nicotine PATCH 7 MG/24 HR* PATCH TRANSDERM SCH ×2 (07:46→08:58)
[2018-11-27] MEDS: Simethicone TAB* 80 MG TAB.CHEW PO SCH ×2 (08:45→13:19)
[2018-11-27] MEDS: Buprenorphine TAB* 8 MG PO SCH (08:47)
[2018-11-27] MEDS: Docusate CAP* 100 MG PO SCH ×2 (08:47→13:19)
[2018-11-27 09:12] VITALS: BP 120/71
[2018-11-27 11:15] LABS: Urine Benzodiazepine Screen None Detected (None Detect); Urine Opiates Screen Presumptive Positive (None Detect)
== END 2018-11-27 13:45 | disposition home or self-care (01) | DRG 786 ==
LOC: MCHOB 11-23 13:17
PROC: 4A1HXCZ Monitoring of Products of Conception, Cardiac Rate, External Approach (ICD-10-PCS; 2018-11-24)
PROC: 10D00Z1 Extraction of Products of Conception, Low, Open Approach (ICD-10-PCS; principal; 2018-11-24 07:45)
DX: O26.62 Liver and biliary tract disorders in childbirth (principal); O75.3 Other infection during labor; K83.1 Obstruction of bile duct; O99.324 Drug use complicating childbirth; N12 Tubulo-interstitial nephritis, not specified as acute or chronic; O34.211 Maternal care for low transverse scar from previous cesarean delivery; O24.420 Gestational diabetes mellitus in childbirth, diet controlled; F11.10 Opioid abuse, uncomplicated; O99.334 Smoking (tobacco) complicating childbirth; B96.20 Unspecified Escherichia coli [E. coli] as the cause of diseases classified elsewhere; B95.62 Methicillin resistant Staphylococcus aureus infection as the cause of diseases classified elsewhere; Z3A.37 37 weeks gestation of pregnancy; Z37.0 Single live birth; Z72.0 Tobacco use; Z91.041 Radiographic dye allergy status; Z91.013 Allergy to seafood; Z91.018 Allergy to other foods
CPT/HCPCS: 36415; 80048; 80307; 81003; 81015; 85025; 85660; 86850; 86870; 86880; 86900; 86901; 87077; 87086; 87186; 87641; 88307; 90707; 90715; A9270-GY; J0694; J1885; J2405; J2590; J2704

== ENCOUNTER 2018-11-28 23:58 | Emergency (ER) | payer MEDICAID ==
[2018-11-29] MEDS ORDERED: Clindamycin CAP* 150 MG PO ONE (01:07)
--- NOTE | 2018-11-29 01:09 | ED ---
Abdominal Pain/Female - HPI Summary HPI Summary: This pt is a y/o F presenting to [facility] with a CC of abdominal pain following a since 11/28/18 at 0800. She states that the pain is a 9 in severity and has progressively gotten worse throughout the day. She states that she was able to complete her errands this morning during the onset, but after visiting her daughter at [facility] the pain was too intense. She states that there has been episodes of drainage. She denies any fever, N/V/D, CP, SOB, and diaphoresis. She has no aggravating or alleviating factors. - History of Current Complaint Chief Complaint: EDGeneral Stated Complaint: ON AND PAIN PER PT Time Seen by Provider: 11/29/18 00:49 Hx Obtained From: Patient Hx Last Menstrual Period: [id number] ?: No Onset/Duration: Sudden Onset, Lasting Hours - since 088 11/28/18, Still Present, Worse Since Timing: Constant Severity Initially: Moderate Severity Currently: Severe Pain Intensity: 9 Pain Scale Used: 0-10 Numeric Location: Suprapubic Radiates: No Aggravating Factor(s): Nothing Alleviating Factor(s): Nothing Associated Signs and Symptoms: Positive: Other: - drainage from the surgical site, pain around the surgical site. Negative: Diaphoresis, Fever, Chest Pain, Nausea, Vomiting, Diarrhea Allergies/Adverse Reactions: Allergies Allergy/AdvReac Type Severity Reaction Status Date / Time Iodinated Contrast- Oral and Allergy Hives Verified 11/29/18 00:05 IV Dye iodine Allergy Hives Verified 11/29/18 00:05 mushroom Allergy Hives Verified 11/29/18 00:05 shellfish derived Allergy Anaphylatic Verified 11/29/18 00:05 Shock PMH/Surg Hx/FS Hx/Imm Hx Previously Healthy: Yes Respiratory History: Reports: Hx Asthma - exercise induced GI History: Reports: Hx Ulcer History: Reports: Hx Kidney Infection Psychiatric History: Reports: Hx Anxiety, Hx Depression - Surgical History Surgery Procedure, Year, and Place: c-sectionx1 Infectious Disease History: Yes Infectious Disease History: Denies: Traveled Outside the [place] in Last 30 Days - Family History Known Family History: Positive: Other - pt denies family hx of cardiopulmonary disease or cancer - Social History Alcohol Use: None Alcohol Amount: pt state none in the last six months Hx Substance Use: Yes - heroin Substance Use Type: Reports: Heroin Substance Use Comment - Amount & Last Used: currently in custodial Hx Tobacco Use: Yes Smoking Status (MU): Light Every Day Tobacco Smoker Type: Cigarettes Amount Used/How Often: 1 PPD Have You Smoked in the Last Year: Yes Review of Systems Negative: Fever, Skin Diaphoresis Negative: Chest Pain Negative: Shortness Of Breath Positive: Abdominal Pain - suprapubic. Negative: Vomiting, Diarrhea, Nausea All Other Systems Reviewed And Are Negative: Yes Physical Exam - Summary Physical Exam Summary: VITAL SIGNS: Reviewed. GENERAL: Patient is a well-developed and nourished female who is lying comfortable in the stretcher. Patient is not in any acute respiratory distress. HEAD AND FACE: No signs of trauma. No ecchymosis, hematomas or skull depressions. No sinus tenderness. EYES: PERRLA, EOMI x 2, No injected conjunctiva, no nystagmus. EARS: Hearing grossly intact. Ear canals and tympanic membranes are within normal limits. MOUTH: Oropharynx within normal limits. NECK: Supple, trachea is midline, no adenopathy, no JVD, no carotid bruit, no c- spine tenderness, neck with full ROM CHEST: Symmetric, no tenderness at palpation LUNGS: Clear to auscultation bilaterally. No wheezing or crackles. CVS: Regular rate and rhythm, S1 and S2 present, no murmurs or gallops appreciated. ABDOMEN: Mild induration around the surgery line. No signs of distention. No rebound no guarding, and no masses palpated. Bowel sounds are normal. EXTREMITIES: FROM in all major joints, no edema, no cyanosis or clubbing. NEURO: Alert and oriented x 3. No acute neurological deficits. Speech is normal and follows commands. SKIN: Dry and warm, incision are emplaced, no discharge Triage Information Reviewed: Yes Vital Signs On Initial Exam: Initial Vitals Temp Pulse Resp BP Pulse Ox 99.8 F 98 16 132/82 98 11/29/18 00:00 11/29/18 00:00 11/29/18 00:00 11/29/18 00:00 11/29/18 00:00 Vital Signs Reviewed: Yes Diagnostics - Vital Signs Vital Signs Temp Pulse Resp BP Pulse Ox 11/29/18 01:06 98.9 F 11/29/18 00:00 99.8 F 98 16 132/82 98 - Laboratory Lab Statement: Any lab studies that have been ordered have been reviewed, and results considered in the medical decision making process. Abdominal Pain Fem Course/Dx - Course Course Of Treatment: This pt is a 33 y/o F presenting to [facility] with postoperative abdominal pain around the surgery. She states that there has been drainage and intense pain throughout the day. Her PE shows that she has Mild induration around the surgery line, incision are emplaced, no discharge. She will be discharged home with a Dx of postoperative wound infection and given a course of clindamycin. She will be isntructed to follow up with Dr. Choudhary, Gynocologist, JOANNE for further investigation. - Diagnoses Provider Diagnoses: Wound infection after surgery Is Visit Related: Yes Discharge - Sign-Out/Discharge Documenting (check all that apply): Patient Departure - discharge Patient Received Moderate/Deep Sedation with Procedure: No - Discharge Plan Condition: Stable Disposition: HOME Prescriptions: Clindamycin Cap(NF) [Clindamycin Cap 300 mg Cap(NF)] 300 mg PO Q6H #30 cap Patient Education Materials: Wound Infection (ED) Referrals: Eduin Choudhary MD [Medical Doctor] - As Soon As Possible Additional Instructions: Please follow up with Dr. Choudhary, risk professional, JOANNE. Return to the emergency department for any new or worsening symptoms. Take the prescribed medications as directed. - Attestation Statements Document Initiated by Scribe: Yes Documenting Scribe: Miah Alcantar Provider For Whom Scribe is Documenting (Include Credential): Elyssa Gonzalez MD Scribe Attestation: Miah Dupont, scribed for Elyssa Gonzalez MD on 11/29/18 at 0111. Status of Scribe Document: Ready
[2018-11-29 01:39] VITALS: BP 125/81
== END 2018-11-29 01:38 | disposition home or self-care (01) ==
LOC: ED 23:58
DX: O86.01 Infection of obstetric surgical wound, superficial incisional site (principal); Z88.3 Allergy status to other anti-infective agents; Z91.041 Radiographic dye allergy status; Z91.013 Allergy to seafood; Z91.018 Allergy to other foods; F17.210 Nicotine dependence, cigarettes, uncomplicated
CPT/HCPCS: 99282; A9270-GY

== ENCOUNTER 2020-07-18 20:17 | Inpatient (IN) ==
[2020-07-18 20:58] LABS: ABS Lymphocytes 3.3 10^3/ul (1.0-4.8); ABS Monocytes 0.8 10^3/ul (0-0.8); Eosinophil % 0.1 %; Hematocrit 36 % (35-47); Hemoglobin 12.1 g/dL (12.0-16.0); Lymphocyte % 25.4 %; Mean Corpuscular HGB Conc 33 g/dL (31-36); Mean Corpuscular Hemoglobin 30 pg (27-31); Mean Corpuscular Volume 89 fL (80-97); Nucleated Red Blood Cells % 0.2; Platelet Count 397 10^3/uL (150-450); Red Blood Count 4.06 10^6 /uL (3.70-4.87); Red Cell Distribution Width 14 % (10-15); White Blood Count 13.1 10^3/uL (3.5-10.8)
[2020-07-18] MEDS ORDERED: ceFOXitin 2 GM IVPREMIX 2 GM/50 ML BAG ONE (21:27)
[2020-07-18 21:35] LABS: Urine Benzodiazepine Screen None Detected (None Detect); Urine Cannabinoids Screen None Detected (None Detect); Urine Opiates Screen Presumptive Positive (None Detect)
[2020-07-18] MEDS ORDERED: Sodium Citrate/Citric Acid LIQ 15 ML UDC ONE (21:38)
[2020-07-18] MEDS ORDERED: Sodium Citrate/Citric Acid LIQ 15 ML UDC PO ONE (21:46)
[2020-07-18] MEDS ORDERED: ceFOXitin 2 GM IVPREMIX 2 GM/50 ML BAG IVPB ONE (21:46)
[2020-07-18] MEDS ORDERED: Lactated Ringers 1000 ml BAG 1,000 ML IV ONE (21:46)
[2020-07-18] MEDS ORDERED: Buffered Lidocaine 1% SYRIN 1 ml INTRADERM ONE (21:46)
[2020-07-18] MEDS ORDERED: diPHENhydraMINE IV 50 MG/ML 1 ml VIAL (BENADRYL) IV PRN (21:57)
[2020-07-18] MEDS ORDERED: Naloxone 0.4 mg VIAL 0.4 mg/ml 1 ml VIAL IV PRN (21:57)
[2020-07-18] MEDS ORDERED: DiMENhydriNATE IV 50 mg/ml 1 ml VIAL IV PUSH PRN (21:57)
[2020-07-18] MEDS ORDERED: Ondansetron 4 mg VIAL 2 MG/ML 2 ml VIAL IV PRN (21:57)
[2020-07-18] MEDS ORDERED: Lactated Ringers 1000 ml BAG 1,000 ML IV SCH (22:00)
[2020-07-18] MEDS ORDERED: Dibucaine 1% OINT 28.35 GM TUBE PR PRN (23:18)
[2020-07-18] MEDS ORDERED: Tetan/Diph/Pertus SYR(Tdap) 0.5 ML SYR(BOOSTRIX) use SYR contains LATEX IM ONE (23:18)
[2020-07-18] MEDS ORDERED: Glycerin ADULT 2.4 gm SUPP PR PRN (23:18)
[2020-07-18] MEDS ORDERED: Witch Hazel PAD JAR TOPICAL PRN (23:18)
[2020-07-18] MEDS ORDERED: RHO D Immune Globulin (HUMAN) 300 MCG = 1,500 I.U. INJ IM PRN (23:18)
[2020-07-18] MEDS ORDERED: Oxytocin in LR 20 UNITS/1,000 ML BAG IVPB SCH (23:45)
[2020-07-19] MEDS: oxyCODONE/Acetamin 5/325 mg TAB PO PRN ×3 (02:32→14:50)
[2020-07-19 13:20] LABS: ABS Basophils 0.1 10^3/ul (0-0.2); ABS Eosinophils 0.1 10^3/ul (0-0.6); ABS Lymphocytes 3.9 10^3/ul (1.0-4.8); ABS Monocytes 0.8 10^3/ul (0-0.8); ABS Neutrophils 6.6 10^3/ul (1.5-7.7); Eosinophil % 0.4 %; Hematocrit 32 % (35-47); Hemoglobin 10.4 g/dL (12.0-16.0); Lymphocyte % 34.3 %; Mean Corpuscular HGB Conc 33 g/dL (31-36); Mean Corpuscular Hemoglobin 29 pg (27-31); Mean Corpuscular Volume 90 fL (80-97); Mean Platelet Volume 9.8 fL (7.4-10.4); Nucleated Red Blood Cells % 0.2; Platelet Count 352 10^3/uL (150-450); Red Blood Count 3.54 10^6 /uL (3.70-4.87); Red Cell Distribution Width 14 % (10-15); White Blood Count 11.4 10^3/uL (3.5-10.8)
[2020-07-21 08:18] VITALS: BP 127/66
== END 2020-07-21 18:05 | disposition home or self-care (01) | DRG 540 ==
LOC: MCHOBOUT 20:17 → MCHOB 21:18
PROVIDERS: ADMIT Obstetrics & Gynecology; ATTEND Obstetrics & Gynecology

== ENCOUNTER 2022-05-17 18:40 | Inpatient (IN) ==
[2022-05-17] MEDS ORDERED: Lactated Ringers 1000 ml BAG 1,000 ML IV ONE ×2 (19:37→22:22)
[2022-05-17] MEDS ORDERED: Vancomycin 1,250 MG in NS 0.9% 250 ml 250 ML IVPB ONE (20:22)
[2022-05-17] MEDS ORDERED: Piperacillin/Tazobac ADVAN 3.375 GM in NS 0.9% 100 ml BAG 100 ML IV ONE (20:22)
[2022-05-17 22:04] LABS: Hematocrit 32 % (35-47); Hemoglobin 10.6 g/dL (12.0-16.0); Mean Corpuscular HGB Conc 33 g/dL (31-36); Mean Corpuscular Hemoglobin 29 pg (27-31); Mean Corpuscular Volume 90 fL (80-97); Mean Platelet Volume 7.8 fL (7.4-10.4); Platelet Count 352 10^3/uL (150-450); Red Blood Count 3.61 10^6 /uL (3.70-4.87); Red Cell Distribution Width 13 % (10-15); Venous Bicarbonate HCO3 27.7 mmol/L (24-28); White Blood Count 27.8 10^3/uL (3.5-10.8)
[2022-05-17 22:20] LABS: ABS Basophils 0.1 10^3/ul (0-0.2); ABS Lymphocytes 2.7 10^3/ul (1.0-4.8); ABS Monocytes 2.9 10^3/ul (0-0.8); ABS Neutrophils 22.1 10^3/ul (1.5-7.7); Lymphocyte % 9.6 %
[2022-05-17 22:40] LABS: ALT 20 U/L (7-52); AST 19 U/L (13-39); Albumin 3.2 g/dL (3.2-5.2); Alkaline Phosphatase 83 U/L (35-149); Anion Gap 10 mmol/L (2-11); Blood Urea Nitrogen 7 mg/dL (6-24); C Reactive Protein 88.81 mg/L (<8.01); CO2 Carbon Dioxide 25 mmol/L (22-32); Calcium 8.8 mg/dL (8.6-10.3); Chloride 99 mmol/L (101-111); Globulin 3.2 g/dL (2-4); Glucose 111 mg/dL (70-100); Magnesium 1.6 mg/dL (1.9-2.7); Potassium 3.5 mmol/L (3.5-5.0); Sodium 134 mmol/L (135-145); Total Protein 6.4 g/dL (6.4-8.9); eGFR CKD-EPI 122.7 (>60)
[2022-05-17 22:46] LABS: HCG Pregnancy < 0.60 mIU/mL
[2022-05-17] MEDS ORDERED: Iohexol 350 (CONTRAST) 500 ML MDV IV ONE (22:54)
[2022-05-17 23:25] LABS: Urine Appearance Cloudy; Urine Bilirubin Negative (Negative); Urine Blood 1+ (Negative); Urine Color Amber; Urine Glucose Negative (Negative); Urine Ketones 1+ (Negative); Urine Nitrite Positive (Negative); Urine Protein 1+(30 mg/dL) (Negative); Urine Specific Gravity 1.018 (1.002-1.030); Urine Urobilinogen Negative (Negative)
[2022-05-17 23:26] LABS: Urine Bacteria Absent (Absent); Urine Red Blood Cell Absent (Absent); Urine White Blood Cell Absent (Absent)
[2022-05-18] MEDS ORDERED: Magnesium Sulfate IV 3 GM in NS 0.9% 100 ml BAG 100 ML IVPB ONE (03:10)
[2022-05-18 04:20] LABS: Total Iron Binding Capacity 272 mcg/dL (250-450); Transferrin 194 mg/dL (203-362)
[2022-05-18 04:22] LABS: % Iron Saturation 7 % (15-55); Iron < 20 ug/dL (50-212); Unsaturated Iron Binding 252 ug/dL
[2022-05-18 04:36] LABS: TSH Ultra Thyroid Stim Horm 0.62 mcIU/mL (0.34-5.60)
[2022-05-18 04:38] LABS: Free T4 0.91 ng/dL (0.61-1.12)
[2022-05-18 04:44] LABS: Ferritin 215.5 ng/mL (11-307)
[2022-05-18 04:47] LABS: Folate 7.13 ng/mL (5.90-24.80)
[2022-05-18 04:48] LABS: Vitamin B12 493 pg/mL (180-914)
[2022-05-18] MEDS ORDERED: Cefepime 2 GM in Dextrose 2 GM/50 ML BAG IV SCH (06:00)
[2022-05-18] MEDS ORDERED: Vancomycin per Pharmacy 1 EA NOTE FOLLOW UP SCH (06:00)
[2022-05-18] MEDS ORDERED: Clindamycin 600 MG/D5W BAG 600 MG/50 ML BAG IV SCH ×2 (06:30→17:00)
[2022-05-18] MEDS: Acetaminophen IV 1 GM/100ML 1,000 MG/100 ML BAG IV SCH ×3 (06:30→18:41)
[2022-05-18 07:27] LABS: Hematocrit 31 % (35-47); Hemoglobin 10.2 g/dL (12.0-16.0); Mean Corpuscular HGB Conc 33 g/dL (31-36); Mean Corpuscular Hemoglobin 30 pg (27-31); Mean Corpuscular Volume 91 fL (80-97); Mean Platelet Volume 7.9 fL (7.4-10.4); Platelet Count 318 10^3/uL (150-450); Red Blood Count 3.44 10^6 /uL (3.70-4.87); Red Cell Distribution Width 13 % (10-15); White Blood Count 24.5 10^3/uL (3.5-10.8)
[2022-05-18 07:41] LABS: ABS Basophils 0.1 10^3/ul (0-0.2); ABS Monocytes 2.9 10^3/ul (0-0.8); ABS Neutrophils 19.4 10^3/ul (1.5-7.7); Eosinophil % 0.1 %; Lymphocyte % 8.1 %
[2022-05-18 07:55] LABS: Calcium 8.1 mg/dL (8.6-10.3); Magnesium 1.5 mg/dL (1.9-2.7); Potassium 3.4 mmol/L (3.5-5.0); eGFR CKD-EPI 120.7 (>60)
[2022-05-18] MEDS ORDERED: Potassium EFFERVES 25 meq TAB PO ONE (09:00)
[2022-05-18] MEDS ORDERED: Enoxaparin 40 MG/0.4 ML SYR SUBCUT SCH (09:00)
[2022-05-18] MEDS: Vancomycin 1000 MG in NS 0.9% 250 ML IVPB SCH ×2 (09:55→17:05)
[2022-05-18] MEDS ORDERED: metroNIDAZOLE IV 500 MG/100ML 500 MG/100 ML BAG IVPB SCH (11:00)
[2022-05-18] MEDS ORDERED: Nicotine PATCH 21 MG/24 HR PATCH TRANSDERM SCH (13:00)
[2022-05-18] MEDS ORDERED: Gadoteridol (CONTRAST) 279.3 MG/ML 10 ML IV ONE (16:02)
[2022-05-18] MEDS ORDERED: Zosyn per Pharmacy NOTE FOLLOW UP SCH (17:00)
[2022-05-18] MEDS ORDERED: ZOSYN 3.375 GM x ONE DOSE over 30 miuntes IV (19:30)
[2022-05-18] MEDS ORDERED: Lidocaine 1% VIAL 10 MG/ML VIAL 30 ML ONE (20:11)
[2022-05-18] MEDS ORDERED: Lidocaine 2% PF 5 ML VIAL ONE (20:18)
[2022-05-18] MEDS ORDERED: Propofol 10 MG/ML 20 ML BTL ONE (20:18)
[2022-05-18] MEDS ORDERED: fentaNYL 100 mcg/2 ml 50 MCG/ML VIAL ONE ×4 (20:19→22:05)
[2022-05-18] MEDS ORDERED: Naloxone 0.4 mg VIAL 0.4 mg/ml 1 ml VIAL IV PRN (21:06)
[2022-05-18] MEDS ORDERED: HYDROcodone/ACETAMIN 5/325 mg TAB PO PRN (21:06)
[2022-05-18] MEDS ORDERED: Prochlorperazine 5 mg/ml 2 ml VIAL (10 mg) IV PRN (21:06)
[2022-05-18] MEDS ORDERED: Ondansetron 4 mg VIAL 2 MG/ML 2 ml VIAL ONE (21:22)
[2022-05-18] MEDS: fentaNYL 100 mcg/2 ml 50 MCG/ML VIAL IV PRN ×4 (21:54→22:26)
[2022-05-18] MEDS ORDERED: oxyCODONE/Acetamin 5/325 mg TAB ONE (22:12)
[2022-05-18] MEDS: oxyCODONE/Acetamin 5/325 mg TAB PO PRN ×2 (22:13→22:14)
[2022-05-18 23:59] VITALS: BP 120/82
[2022-05-19] MEDS ORDERED: Buprenorphine 2 mg SL TAB SL ONE (00:39)
[2022-05-19] MEDS ORDERED: Nicotine Lozenge mini 4 MG LOZNG.MINI MT PRN (02:13)
[2022-05-19] MEDS ORDERED: Nicotine GUM 4MG FRUIT FLAVOR PO PRN (02:13)
[2022-05-19] MEDS ORDERED: Lorazepam PYXIS KEY PRN (02:19)
[2022-05-19] MEDS ORDERED: LORazepam 2 mg VIAL 1 ml IV PUSH ONE (02:19)
[2022-05-19] MEDS ORDERED: LORazepam 2 mg VIAL 1 ml ONE (02:25)
[2022-05-19] MEDS ORDERED: Lorazepam PYXIS KEY ONE (02:25)
[2022-05-19] MEDS ORDERED: Nicotine GUM 4MG FRUIT FLAVOR PO ONE (02:27)
[2022-05-19] MEDS ORDERED: ZOSYN 3.375 GM Q8H per EXTENDED INFUSION IV SCH (04:00)
[2022-05-19] MEDS ORDERED: Vancomycin Trough Check NOTE FOLLOW UP ONE (07:30)
== END 2022-05-19 03:00 | disposition left against medical advice (07) | DRG 720 ==
LOC: EDHOLD 18:40 → ED 18:40 → SUATTDRO 05-18 03:35 → MED 05-18 06:38
PROVIDERS: ADMIT Internal Medicine; ATTEND Internal Medicine
PROC: O.GEI&D (2022-05-18 15:45)